=== PATIENT | female | born 1995 | race Hispanic/Latino ===

== ENCOUNTER 2022-01-25 19:36 | Emergency (ER) | payer SELFPAY ==
[2022-01-25] MEDS ORDERED: NALOXONE 0.4 MG/1 ML INJ IV PRN (20:09)
[2022-01-25 20:30] LABS: Bacteria,Urine 4+ /HPF (Negative); Bilirubin,Urine NEG (Negative); Blood,Urine NEG (Negative); Color,Urine Yellow (Yellow); Mucus,Urine FEW /HPF; Protein,Urine <15 mg/dL mg/dL (Negative); Urobilinogen,Urine < 2.0 mg/dL (<2.0)
[2022-01-25 20:37] LABS: Benzodiazepines Screen,Urine Negative; Methadone Screen,Urine Negative; Opiate Screen,Urine Negative
--- NOTE | 2022-01-25 20:43 | Emergency Department Report ---
History of Present Illness - General Chief Complaint: Overdose Stated Complaint: OVER MEDICATION OF HYDROCODONE/AMS Time Seen by Provider: 01/25/22 20:09 Source: EMS Mode of arrival: Stretcher Limitations: No Limitations - History of Present Illness Initial Comments: 26-year-old female with chronic pain secondary to chronic spinal issues presents to the hospital with drug overdose. Patient apparently takes hydrocodone, Xanax, and intermittently takes fentanyl for pain and anxiety. [place] the airport [place] sleeping in a wheelchair and difficult to arouse therefore EMS notified. As per EMS the airline states that patient does not have a purchase ticket. She apparently lives here in [place] and was planning to go visit family in [place]. Patient admits to taking 3 doses of her hydrocodone 5 mg at approximately 1 PM due to pain. She denies suicidal intent. She also states she took her last dose of Xanax 2 mg this morning. Patient's friend called the department and informed one of the nurses that she might also be "withdrawing fr om fentanyl". Accu-Chek was in the 90s range and patient did not receive any medications in route. She is drowsy but arousable to tactile stimulation and will answer questions - Related Data Allergies Allergy/AdvReac Type Severity Reaction Status Date / Time Penicillins Allergy Hives Verified 01/25/22 20:14 ED Review of Systems ROS: Stated complaint: OVER MEDICATION OF HYDROCODONE/AMS Other details as noted in HPI Comment: All other systems reviewed and negative ED Past Medical Hx - Past Medical History Additional medical history: goose neck syndrome - Surgical History Past Surgical History?: No - Social History Smoking Status: Current Every Day Smoker Substance Use Type: Marijuana, Prescribed ED Physical Exam - General Limitations: No Limitations - Other Other exam information: General: No acute distress Head: Atraumatic Eyes: normal appearance ENT: Moist mucous membranes Neck: Normal appearance, no midline tenderness Chest: Clear to auscultation bilaterally respiratory rate greater than 8 without apnea CV: Regular rate and rhythm Abdomen: Soft, normal bowel sounds, nontender, nondistended, no rebound or guarding Back: Normal inspection Extremity: Normal inspection, full range of motion Neuro: Drowsy but arousable to tactile stimulation. Equal handgrip and foot dorsiflexion. Skin: No rash ED Course Vital Signs 01/25/22 01/25/22 01/25/22 19:49 20:18 20:31 Temperature 98.1 F Pulse Rate 49 L 51 L 47 L Respiratory 18 20 25 H Rate Blood Pressure 112/73 127/84 O2 Sat by Pulse 100 99 100 Oximetry 01/25/22 01/25/22 01/25/22 20:45 21:01 21:15 Temperature Pulse Rate 49 L 49 L 53 L Respiratory 25 H 28 H 27 H Rate Blood Pressure 114/78 O2 Sat by Pulse 100 100 100 Oximetry 01/25/22 01/25/22 01/25/22 21:31 21:45 22:01 Temperature Pulse Rate 101 H 53 L 53 L Respiratory 19 27 H 28 H Rate Blood Pressure 109/77 O2 Sat by Pulse 99 99 Oximetry 01/25/22 01/25/22 01/25/22 22:15 22:18 22:31 Temperature 98.6 F Pulse Rate 54 L 53 L Respiratory 24 27 H Rate Blood Pressure 114/80 O2 Sat by Pulse 100 99 Oximetry 01/25/22 01/25/22 01/26/22 23:01 23:31 00:00 Temperature Pulse Rate 58 L 108 H Respiratory 25 H 16 Rate Blood Pressure 113/89 116/89 O2 Sat by Pulse 100 100 100 Oximetry 01/26/22 01/26/22 01/26/22 00:01 00:31 01:01 Temperature Pulse Rate 58 L 59 L 56 L Respiratory 24 23 21 Rate Blood Pressure 109/72 107/77 110/77 O2 Sat by Pulse 100 100 99 Oximetry 01/26/22 01/26/22 01/26/22 01:31 02:01 02:31 Temperature Pulse Rate 58 L 78 62 Respiratory 25 H 22 23 Rate Blood Pressure 102/73 105/75 104/66 O2 Sat by Pulse 99 98 100 Oximetry 01/26/22 01/26/22 01/26/22 03:01 03:31 04:01 Temperature Pulse Rate 55 L 55 L 104 H Respiratory 22 19 28 H Rate Blood Pressure 104/70 89/63 109/73 O2 Sat by Pulse 100 97 98 Oximetry 01/26/22 01/26/22 01/26/22 04:31 05:01 05:31 Temperature Pulse Rate 80 89 103 H Respiratory 14 19 12 Rate Blood Pressure 95/60 109/73 113/78 O2 Sat by Pulse 98 98 Oximetry ED Medical Decision Making - Lab Data Result diagrams: 01/25/22 20:44 01/25/22 20:44 Lab Results 01/25/22 01/25/22 01/25/22 Range/Units 20:44 20:44 20:44 WBC 5.1 (4.5-11.0) K/mm3 RBC 4.52 (3.65-5.03) M/mm3 Hgb 13.8 (10.1-14.3) gm/dl Hct 40.0 (30.3-42.9) % MCV 88 (79-97) fl MCH 30 (28-32) pg MCHC 34 (30-34) % RDW 13.5 (13.2-15.2) % Plt Count 198 (140-440) K/mm3 Lymph % (Auto) 10.0 L (13.4-35.0) % [place] % (Auto) 1.3 (0.0-7.3) % Eos % (Auto) 0.1 (0.0-4.3) % Baso % (Auto) 0.9 (0.0-1.8) % Lymph # (Auto) 0.5 L (1.2-5.4) K/mm3 [place] # (Auto) 0.1 (0.0-0.8) K/mm3 Eos # (Auto) 0.0 (0.0-0.4) K/mm3 Baso # (Auto) 0.0 (0.0-0.1) K/mm3 Seg Neutrophils % 87.7 H (40.0-70.0) % Seg Neutrophils # 4.4 (1.8-7.7) K/mm3 Sodium 142 (137-145) mmol/L Potassium 4.5 (3.6-5.0) mmol/L Chloride 107.6 H (98-107) mmol/L Carbon Dioxide 24 (22-30) mmol/L Anion Gap 15 mmol/L BUN 11 (7-17) mg/dL Creatinine 0.7 (0.6-1.2) mg/dL Estimated GFR > 60 ml/min BUN/Creatinine Ratio 16 % Glucose 114 H (65-100) mg/dL Calcium 9.4 (8.4-10.2) mg/dL Total Bilirubin 0.30 (0.1-1.2) mg/dL AST 22 (5-40) units/L ALT 19 (7-56) units/L Alkaline Phosphatase 70 (35-129) units/L Ammonia (25-60) umol/L Total Protein 6.7 (6.3-8.2) g/dL Albumin 4.4 (3.9-5) g/dL Albumin/Globulin Ratio 1.9 % HCG, Qual Negative (Negative) Urine Color (Yellow) Urine Turbidity (Clear) Urine pH (5.0-7.0) Ur Specific Fisher (1.003-1.030) Urine Protein (Negative) mg/dL Urine Glucose (UA) (Negative) mg/dL Urine Ketones (Negative) mg/dL Urine Blood (Negative) Urine Nitrite (Negative) Urine Bilirubin (Negative) Urine Urobilinogen (<2.0) mg/dL Ur Leukocyte Esterase (Negative) Urine WBC (Auto) (0.0-6.0) /HPF Urine RBC (Auto) (0.0-6.0) /HPF U Epithel Cells (Auto) (0-13.0) /HPF Urine Bacteria (Auto) (Negative) /HPF Urine Mucus /HPF Urine Yeast (Budding) /HPF Salicylates (2.8-20.0) mg/dL Urine Opiates Screen Urine Methadone Screen Acetaminophen (10.0-30.0) ug/mL Ur Barbiturates Screen Ur Phencyclidine Scrn Ur Amphetamines Screen U Benzodiazepines Scrn Urine Cocaine Screen U Marijuana (THC) Screen Drugs of Abuse Note Plasma/Serum Alcohol (0-0.07) % 01/25/22 01/25/22 01/25/22 Range/Units 20:44 20:44 20:44 WBC (4.5-11.0) K/mm3 RBC (3.65-5.03) M/mm3 Hgb (10.1-14.3) gm/dl Hct (30.3-42.9) % MCV (79-97) fl MCH (28-32) pg MCHC (30-34) % RDW (13.2-15.2) % Plt Count (140-440) K/mm3 Lymph % (Auto) (13.4-35.0) % [place] % (Auto) (0.0-7.3) % Eos % (Auto) (0.0-4.3) % Baso % (Auto) (0.0-1.8) % Lymph # (Auto) (1.2-5.4) K/mm3 [place] # (Auto) (0.0-0.8) K/mm3 Eos # (Auto) (0.0-0.4) K/mm3 Baso # (Auto) (0.0-0.1) K/mm3 Seg Neutrophils % (40.0-70.0) % Seg Neutrophils # (1.8-7.7) K/mm3 Sodium (137-145) mmol/L Potassium (3.6-5.0) mmol/L Chloride (98-107) mmol/L Carbon Dioxide (22-30) mmol/L Anion Gap mmol/L BUN (7-17) mg/dL Creatinine (0.6-1.2) mg/dL Estimated GFR ml/min BUN/Creatinine Ratio % Glucose (65-100) mg/dL Calcium (8.4-10.2) mg/dL Total Bilirubin (0.1-1.2) mg/dL AST (5-40) units/L ALT (7-56) units/L Alkaline Phosphatase (35-129) units/L Ammonia 15.0 L (25-60) umol/L Total Protein (6.3-8.2) g/dL Albumin (3.9-5) g/dL Albumin/Globulin Ratio % HCG, Qual (Negative) Urine Color (Yellow) Urine Turbidity (Clear) Urine pH (5.0-7.0) Ur Specific Fisher (1.003-1.030) Urine Protein (Negative) mg/dL Urine Glucose (UA) (Negative) mg/dL Urine Ketones (Negative) mg/dL Urine Blood (Negative) Urine Nitrite (Negative) Urine Bilirubin (Negative) Urine Urobilinogen (<2.0) mg/dL Ur Leukocyte Esterase (Negative) Urine WBC (Auto) (0.0-6.0) /HPF Urine RBC (Auto) (0.0-6.0) /HPF U Epithel Cells (Auto) (0-13.0) /HPF Urine Bacteria (Auto) (Negative) /HPF Urine Mucus /HPF Urine Yeast (Budding) /HPF Salicylates < 0.3 L (2.8-20.0) mg/dL Urine Opiates Screen Urine Methadone Screen Acetaminophen 5.0 L (10.0-30.0) ug/mL Ur Barbiturates Screen Ur Phencyclidine Scrn Ur Amphetamines Screen U Benzodiazepines Scrn Urine Cocaine Screen U Marijuana (THC) Screen Drugs of Abuse Note Plasma/Serum Alcohol (0-0.07) % 01/25/22 01/25/22 01/25/22 Range/Units 20:44 Unknown Unknown WBC (4.5-11.0) K/mm3 RBC (3.65-5.03) M/mm3 Hgb (10.1-14.3) gm/dl Hct (30.3-42.9) % MCV (79-97) fl MCH (28-32) pg MCHC (30-34) % RDW (13.2-15.2) % Plt Count (140-440) K/mm3 Lymph % (Auto) (13.4-35.0) % [place] % (Auto) (0.0-7.3) % Eos % (Auto) (0.0-4.3) % Baso % (Auto) (0.0-1.8) % Lymph # (Auto) (1.2-5.4) K/mm3 [place] # (Auto) (0.0-0.8) K/mm3 Eos # (Auto) (0.0-0.4) K/mm3 Baso # (Auto) (0.0-0.1) K/mm3 Seg Neutrophils % (40.0-70.0) % Seg Neutrophils # (1.8-7.7) K/mm3 Sodium (137-145) mmol/L Potassium (3.6-5.0) mmol/L Chloride (98-107) mmol/L Carbon Dioxide (22-30) mmol/L Anion Gap mmol/L BUN (7-17) mg/dL Creatinine (0.6-1.2) mg/dL Estimated GFR ml/min BUN/Creatinine Ratio % Glucose (65-100) mg/dL Calcium (8.4-10.2) mg/dL Total Bilirubin (0.1-1.2) mg/dL AST (5-40) units/L ALT (7-56) units/L Alkaline Phosphatase (35-129) units/L Ammonia (25-60) umol/L Total Protein (6.3-8.2) g/dL Albumin (3.9-5) g/dL Albumin/Globulin Ratio % HCG, Qual (Negative) Urine Color Yellow (Yellow) Urine Turbidity Clear (Clear) Urine pH 8.0 H (5.0-7.0) Ur Specific Fisher 1.008 (1.003-1.030) Urine Protein <15 mg/dl (Negative) mg/dL Urine Glucose (UA) Neg (Negative) mg/dL Urine Ketones Neg (Negative) mg/dL Urine Blood Neg (Negative) Urine Nitrite Neg (Negative) Urine Bilirubin Neg (Negative) Urine Urobilinogen < 2.0 (<2.0) mg/dL Ur Leukocyte Esterase Tr (Negative) Urine WBC (Auto) 2.0 (0.0-6.0) /HPF Urine RBC (Auto) 1.0 (0.0-6.0) /HPF U Epithel Cells (Auto) < 1.0 (0-13.0) /HPF Urine Bacteria (Auto) 4+ (Negative) /HPF Urine Mucus Few /HPF Urine Yeast (Budding) 1+ /HPF Salicylates (2.8-20.0) mg/dL Urine Opiates Screen Negative Urine Methadone Screen Negative Acetaminophen (10.0-30.0) ug/mL Ur Barbiturates Screen Negative Ur Phencyclidine Scrn Negative Ur Amphetamines Screen Positive U Benzodiazepines Scrn Negative Urine Cocaine Screen Positive U Marijuana (THC) Screen Positive Drugs of Abuse Note Disclamer Plasma/Serum Alcohol < 0.01 (0-0.07) % - EKG Data -: EKG Interpreted by Me EKG shows normal: sinus rhythm, intervals (qtc 424), QRS complexes (qrsd 76), ST-T waves (ant t wave inv, no stemi) Rate: bradycardia (50) - Medical Decision Making 26-year-old female presents to the hospital stating she is taken 3 of her hydrocodone 5 mg tablets around 1 PM causing her to be drowsy. She states she also is chronically on Xanax with last dose this a.m. Her friend called stating that she is "withdrawing from fentanyl". Her UDS is positive for cocaine, amphetamines, and marijuana. Patient is very drowsy during the ED stay but arousable and answers questions. Patient has bradycardia without hypoxia or decreased respiratory rate and has as needed Narcan ordered. Patient will require several hours observation until awake and at baseline mental status. Patient does not endorse suicidal ideation. Labs unremarkable awaiting UDS. Pt signed out to my colleague to reassess and discharged when at baseline mental status Chart reviewed after patient disposition. Dr. Manrique reassessed patient (see his event note) and she was alert and subsequently discharged home Critical Care Time: No Critical care attestation.: If time is entered above; I have spent that time in minutes in the direct care of this critically ill patient, excluding procedure time. ED Disposition Clinical Impression: Drug overdose, Opioid overdose, Cocaine abuse, Amphetamine abuse, Chronically on benzodiazepine therapy, Chronic pain Disposition: HOME / SELF CARE / HOMELESS Is pt being admited?: No Condition: Stable Instructions: Substance Use Disorder, Opioid Overdose Additional Instructions: Follow-up with your doctor or doctor/clinic provided. Return if symptoms worsen as indicated by your discharge instructions. Professional and Agency Contacts To help [facility] Crises (04/04) [place] Crisis Line: Suicide Prevention Line: Crisis Text Line: Text ``START to 892310 Emergency: 911 SUBSTANCE ABUSE PROGRAMS: Sober Living Tisha: Location: [place], [place] Mis Descuentos Address: [address] [place] [address] [facility]: Address: [address] [place] [address] [facility]: Address: [address] [place] [address] [facility]: Address: [address] [place] [address] Referrals: DAFNE QUEVEDO MD [Primary Care Provider] - 3-5 Days
[2022-01-25 20:49] LABS: Amphetamine Screen,Urine Positive; Cannabinoid Screen,Urine Positive; Cocaine Screen,Urine Positive
[2022-01-25 21:03] LABS: Hemoglobin 13.8 gm/dl (10.1-14.3); Mean Corpuscular HGB Conc 34 % (30-34); Mean Corpuscular Volume 88 fl (79-97); Platelet Count 198 K/mm3 (140-440); Red Blood Count 4.52 M/mm3 (3.65-5.03); Red Cell Distribution Width 13.5 % (13.2-15.2)
[2022-01-25 21:18] LABS: Basophils % (Auto) 0.9 % (0.0-1.8); Eosinophils % (Auto) 0.1 % (0.0-4.3); Lymphocytes # (Auto) 0.5 K/mm3 (1.2-5.4); Monocytes # (Auto) 0.1 K/mm3 (0.0-0.8); Monocytes % (Auto) 1.3 % (0.0-7.3)
[2022-01-25 21:22] LABS: Alanine Aminotransferase 19 units/L (7-56); Albumin 4.4 g/dL (3.9-5); Blood Urea Nitrogen 11 mg/dL (7-17); Calcium 9.4 mg/dL (8.4-10.2); Hemolysis Index 48
[2022-01-25 21:23] LABS: BUN/Creatinine Ratio 16
--- NOTE | 2022-01-26 05:04 | Event Note ---
Date: 01/26/22 Patient reassessed by me at 5:03 AM. She is awake and eating in bed. States she is ready to go home. Patient discharged in stable condition.
[2022-01-26 07:07] VITALS: BP 113/78
--- NOTE | 2022-01-26 12:33 | Electrocardiograph Report ---
[facility] Test Date: 2022-01-25 Test Time: 20:54:44 Pat Name: CHALO SOL Department: Room: Gender: F Crm Marketing Executive: OLMAN : 1995 Requested By: MONICA MARSH Order Number: [id number] Reading MD: Khai Melo Measurements Intervals [place] Rate: 50 P: 22 VT: 105 QRS: 81 QRSD: 76 T: 77 QT: 464 QTc: 424 Interpretive Statements Sinus bradycardia,short VT interval. Nonspecific T abnrm, anterolateral leads No previous ECG available for comparison Electronically Signed On 01-26-2022 12:32:41 EDT by Khai Melo
== END 2022-01-26 06:55 | disposition home or self-care (01) ==
LOC: ED 19:36
DX: T40.2X1A Poisoning by other opioids, accidental (unintentional), initial encounter (principal); F13.20 Sedative, hypnotic or anxiolytic dependence, uncomplicated; G89.29 Other chronic pain; F15.10 Other stimulant abuse, uncomplicated; F14.10 Cocaine abuse, uncomplicated; F17.200 Nicotine dependence, unspecified, uncomplicated; F12.90 Cannabis use, unspecified, uncomplicated; Z88.0 Allergy status to penicillin; Z79.899 Other long term (current) drug therapy; Y92.89 Other specified places as the place of occurrence of the external cause
CPT/HCPCS: 36415; 80053; 80307; 80320; 81001; 82140; 84703; 85025; 93005; 99284; G0480